=== PATIENT | female | born 1935 | race Caucasian/White ===

== ENCOUNTER 2018-10-23 05:49 | Day surgery (SDC) | payer MEDICARE, OTHER ==
[~2018-10-23] VITALS: Ht 165.1 cm; Wt 93.0 kg
[2018-10-23] MEDS ORDERED: SODIUM CHLORIDE 0.9% 1000ML 1,000 ML IV ONE (06:15)
[2018-10-23 06:42] VITALS: BP 160/64
[2018-10-23] MEDS ORDERED: ACET-66 PO (06:58)
[2018-10-23] MEDS ORDERED: BUTA1CAP44 PO (06:58)
[2018-10-23] MEDS ORDERED: MULT-725 PO (06:58)
[2018-10-23] MEDS ORDERED: GLIM1TAB2 PO (06:58)
[2018-10-23] MEDS ORDERED: CHOL5POW MC (06:58)
[2018-10-23] MEDS ORDERED: SIMV40TA59 PO (06:58)
[2018-10-23] MEDS ORDERED: OMEP40CA37 PO (06:58)
[2018-10-23] MEDS ORDERED: PROPOFOL 10 MG/ML 20ML VIAL IV ONE (08:06)
[2018-10-23 08:30] VITALS: BP 122/59
[2018-10-23 08:35] VITALS: BP 129/56
[2018-10-23 08:40] VITALS: BP 140/65
[2018-10-23 08:45] VITALS: BP 141/65
== END 2018-10-23 09:02 | disposition home or self-care (01) ==
LOC: DAH 05:49 → ENDO 05:49
PROVIDERS: ATTEND Internal Medicine
DX: D12.2 Benign neoplasm of ascending colon (principal); Z86.010 Personal history of colon polyps; D12.4 Benign neoplasm of descending colon; E78.5 Hyperlipidemia, unspecified; Z86.73 Personal history of transient ischemic attack (TIA), and cerebral infarction without residual deficits; K21.9 Gastro-esophageal reflux disease without esophagitis; E11.9 Type 2 diabetes mellitus without complications; I50.9 Heart failure, unspecified; Z79.899 Other long term (current) drug therapy; F32.9 Major depressive disorder, single episode, unspecified; Z98.890 Other specified postprocedural states
CPT/HCPCS: 45380; 45381; 45385; 82948 ×2; 88305; 93005; A4606; J2704; J7030; 44389

== ENCOUNTER 2020-05-11 19:05 | Emergency (ER) | payer OTHER ==
[~2020-05-11 19:05] MED LIST: ACET-66 PO; BUTA1CAP44 PO; CHOL5POW MC; GLIM1TAB18 PO; MULT-725 PO; OMEP40CA21 PO; SIMV40TA59 PO
[2020-05-11 20:31] LABS: BASOPHILS % (AUTO) 0.5 % (0.0-5.0); EOSINOPHILS % (AUTO) 3.2 % (0.0-8.0); HEMATOCRIT 35.3 % (36-48); LYMPHOCYTES % (AUTO) 20.4 % (21.0-51.0); MEAN CORPUSCULAR HEMOGLOBIN 33.4 pg (27.0-33.0); MEAN CORPUSCULAR HGB CONC 34.6 g/dL (32.0-36.0); MEAN CORPUSCULAR VOLUME 96.7 fL (79-99); MONOCYTES % (AUTO) 6.8 % (3.0-13.0); NEUTROPHILS % (AUTO) 68.9 % (40.0-77.0); PLATELET COUNT (AUTO) 212 K/uL (130-400); RED BLOOD CELL COUNT(AUTO) 3.65 MIL/uL (4.00-5.50); RED CELL DISTRIBUTION WIDTH 16.8 % (11.0-15.5); WHITE BLOOD COUNT (AUTO) 9.6 K/uL (4.8-10.8)
[2020-05-11 20:41] LABS: CREATININE 0.9 mg/dL (0.5-1.5); POTASSIUM 3.3 mmol/L (3.5-5.1)
[2020-05-11 20:46] LABS: ALBUMIN 3.1 g/dL (3.5-5.0); BILIRUBIN,TOTAL 0.9 mg/dL (0.2-1.0); TOTAL PROTEIN, SERUM 6.6 g/dL (6.0-8.3)
[2020-05-11] MEDS ORDERED: KCL 20 MEQ ERTAB PO ONE (21:13)
[2020-05-11] MEDS ORDERED: TRAMADOL HCL 50 MG TABLET ONE (21:14)
== END 2020-05-11 21:49 | disposition home or self-care (01) ==
LOC: EDH 19:05
DX: S76.012A Strain of muscle, fascia and tendon of left hip, initial encounter (principal); M62.81 Muscle weakness (generalized); E87.6 Hypokalemia; E11.9 Type 2 diabetes mellitus without complications; E78.00 Pure hypercholesterolemia, unspecified; W18.39XA Other fall on same level, initial encounter; Y93.89 Activity, other specified; Y92.89 Other specified places as the place of occurrence of the external cause; Y99.8 Other external cause status
CPT/HCPCS: 36415; 73522; 73562; 80053; 82550; 85025; 93005